=== PATIENT | female | born 1995 | race Caucasian/White ===

== ENCOUNTER 2017-01-12 20:50 | Outpatient (CLI) | payer BC ==
[2017-01-12 21:26] VITALS: BP 98/62
[2017-01-12 22:37] LABS: ADD MIUA? YES; BILIRUBIN NEGATIVE; BLOOD NEGATIVE; COLOR YELLOW ((YELLOW)); GLUCOSE (STRIP) NEGATIVE; KETONES NEGATIVE; LEUKOCYTES TRACE; NITRITE NEGATIVE; PROTEIN (STRIP) NEGATIVE; UROBILINOGEN 0.2 MG/DL (0.2-1.0)
[2017-01-12 22:54] LABS: BACTERIA RARE /HPF; EPITHELIAL CELLS RARE /HPF; MUCUS 1+ /LPF; RED BLOOD CELLS 0-5 /HPF (0-5); WHITE BLOOD CELLS 0-5 /HPF (0-5)
[2017-01-13 05:15] LABS: CANDIDA DNA PROBE NEGATIVE; GARDNERELLA DNA PROBE NEGATIVE; INTERNAL CONTROL VALID? YES
== END 2017-01-12 22:05 | disposition home or self-care (01) ==
LOC: LDRP-OP 20:50 → 2WEST 20:51 → LDRP-OP 06-23 11:33
PROVIDERS: Advanced Practice Midwife
DX: O26.892 Other specified pregnancy related conditions, second trimester (principal); R10.31 Right lower quadrant pain; Z3A.21 21 weeks gestation of pregnancy
CPT/HCPCS: 81003; 87086; 87480; 87510; 87660; G0378

== ENCOUNTER → 2017-02-25 | Outpatient (CLI) | payer BC ==
[~2017-02-25] VITALS: Ht 157.5 cm; Wt 94.1 kg
[~2017-02-25] MED LIST: PRENATAL TABLE1 EAC3 PO
[2017-02-25 13:08] VITALS: BP 122/76
== END | disposition home or self-care (01) ==
LOC: IVINF 12:32
DX: Z31.82 Encounter for Rh incompatibility status (principal); Z3A.28 28 weeks gestation of pregnancy
CPT/HCPCS: 96372; J2790

== ENCOUNTER 2017-02-27 17:46 | Outpatient (CLI) | payer BC ==
[~2017-02-27] VITALS: Ht 157.5 cm; Wt 96.0 kg
[2017-02-27 18:11] VITALS: BP 108/55
== END 2017-02-27 19:40 | disposition home or self-care (01) ==
LOC: LDRP-OP 17:46 → 2WEST 17:47 → LDRP-OP 06-23 22:21
DX: O36.8120 Decreased fetal movements, second trimester, not applicable or unspecified (principal); Z3A.27 27 weeks gestation of pregnancy
CPT/HCPCS: 59025; G0378

== ENCOUNTER 2017-05-14 14:29 | Outpatient (CLI) | payer BC ==
[2017-05-14 14:57] VITALS: BP 117/77
== END 2017-05-14 16:20 | disposition home or self-care (01) ==
LOC: LDRP-OP 14:29 → 2WEST 14:30 → LDRP-OP 06-23 20:09
DX: O42.92 Full-term premature rupture of membranes, unspecified as to length of time between rupture and onset of labor (principal); Z3A.38 38 weeks gestation of pregnancy
CPT/HCPCS: 59025; G0378

== ENCOUNTER 2017-05-15 07:21 | Inpatient (IN) | payer BC ==
[~2017-05-15] VITALS: Ht 157.5 cm; Wt 102.3 kg
[2017-05-15] VITALS (24 sets, daily range): BP systolic 114–139; BP diastolic 55–88
[2017-05-15 08:33] LABS: EOSINOPHIL (%) 0.1 % (0-5); IMMATURE GRANULOCYTE (%) 0.7 % (0.0-0.7); IMMATURE GRANULOCYTE COUNT 0.1 K/uL; LYMPHOCYTE COUNT 1.9 K/uL (1.0-2.8); MCH 25.3 PG (29.0-34.0); MCHC 32.9 G/DL (30.0-36.0); MCV 76.7 FL (83-99); MEAN PLAT.VOLUME 9.1 uM^3 (9.5-12.4); MONOCYTE (%) 5.9 % (3-12); MONOCYTE COUNT 0.8 K/uL (0-0.8); NEUTROPHIL (%) 79.8 % (45-76); PLATELET COUNT 340 K/uL (156-360); RBC DIS.WIDTH-CV 14.5 % (11.8-14.6); RBC DIS.WIDTH-SD 39.8 % (39-53); RED BLOOD COUNT 4.43 M/uL (3.80-5.20); WHITE BLOOD COUNT 13.8 K/uL (4.1-10.2)
[2017-05-16 07:24] VITALS: BP 111/61
[2017-05-16 07:27] LABS: EOSINOPHIL (%) 0.4 % (0-5); HEMATOCRIT 27.9 % (36.0-46.0); IMMATURE GRANULOCYTE (%) 0.8 % (0.0-0.7); IMMATURE GRANULOCYTE COUNT 0.1 K/uL; LYMPHOCYTE COUNT 2.4 K/uL (1.0-2.8); MCHC 32.3 G/DL (30.0-36.0); MCV 77.5 FL (83-99); MONOCYTE (%) 9.3 % (3-12); NEUTROPHIL (%) 66.4 % (45-76); RBC DIS.WIDTH-CV 14.7 % (11.8-14.6); RBC DIS.WIDTH-SD 41.1 % (39-53); WHITE BLOOD COUNT 10.5 K/uL (4.1-10.2)
[2017-05-16 07:48] LABS: MEAN PLAT.VOLUME 9.4 uM^3 (9.5-12.4); PLAT.SUFFICIENCY ADEQUATE
[2017-05-16 07:53] LABS: PLATELET COUNT 237 K/uL (156-360)
[2017-05-16 15:07] VITALS: BP 108/64
[2017-05-16 23:26] VITALS: BP 129/59
[2017-05-17] MEDS ORDERED: IBUPROFEN800 MG PO (08:25)
[2017-05-17 15:05] VITALS: BP 118/65
[2017-05-17] MEDS ORDERED: BREAST PUMP MC (15:08)
== END 2017-05-17 18:22 | disposition home or self-care (01) | DRG 775 ==
LOC: LDRP-OP 07:21 → 2WEST 07:22 → LDRP-OP 06-23 20:56
PROVIDERS: Advanced Practice Midwife
DX: O71.4 Obstetric high vaginal laceration alone (principal); O42.02 Full-term premature rupture of membranes, onset of labor within 24 hours of rupture; O99.824 Streptococcus B carrier state complicating childbirth; O99.02 Anemia complicating childbirth; D62 Acute posthemorrhagic anemia; O99.344 Other mental disorders complicating childbirth; F32.9 Major depressive disorder, single episode, unspecified; O99.214 Obesity complicating childbirth; E66.9 Obesity, unspecified; Z68.36 Body mass index [BMI] 36.0-36.9, adult; Z88.2 Allergy status to sulfonamides; Z3A.38 38 weeks gestation of pregnancy; Z37.0 Single live birth
CPT/HCPCS: 83030; 85025; 86900; 86901; C1755; J2540; J2790; J3010; J7120